=== PATIENT | male | born 1995 | race African-American/Black ===

== ENCOUNTER 2018-05-22 15:16 | Emergency (ER) | payer OTHER ==
--- NOTE | 2018-05-22 16:09 | ED Physician Documentation ---
History of Present Illness - Stated complaint Stated Complaint: DARBY - Chief complaint Chief Complaint: Neuro - Additonal information Additional information: hx from pt healthy 23 y/o male hx cluster DARBY typically one sided severe brief and sometimes with vision loss he was going to get a MRI as part of work up when he used to live in [place] - but he missed his MRI appt due to a relationship break up today had a typical DARBY with right vision blurriness no trauma no fever or neck stiffness no CO exposure just headahce typical of his HAs now it is gone Review of Systems Constitutional: denies: Fever Eyes: reports: Decreased vision Cardiac: denies: Chest pain / pressure Respiratory: denies: Dyspnea GI: reports: Nausea, Vomiting Neurologic: reports: Headache. denies: Focal weakness, Numbness, Head injury Endocrine: denies: Easy bruising / bleeding Immunocompromised: denies: Immunocompromised PD PAST MEDICAL HISTORY - Past Medical History Past Medical History: Yes Neuro: Headaches - Past Surgical History Past Surgical History: Yes HEENT: Other - Present Medications Home Medications: Ambulatory Orders Medication Instructions Recorded Confirmed Ondansetron Odt [Zofran] 4 mg TL Q6H PRN #10 tablet 05/22/18 - Allergies Allergies/Adverse Reactions: Allergies Allergy/AdvReac Type Severity Reaction Status Date / Time No Known Drug Allergies Allergy Verified 05/22/18 15:34 - Social History Does the pt smoke?: No Smoking Status: Never smoker Does the pt drink ETOH?: No Does the pt have substance abuse?: No - Immunizations Immunizations are current?: Yes - POLST Patient has POLST: No PD ED PE NORMAL - Vitals Vital signs reviewed: Yes - General General: Alert and oriented X 3 - HEENT HEENT: PERRL, Other (globes soft, no TA TTP, no hazienss PERRL) - Neck Neck: Supple, no meningeal sign - Cardiac Cardiac: RRR - Respiratory Respiratory: No respiratory distress - Neuro Neuro: Alert and oriented X 3, No motor deficit, Normal speech Eye Opening: Spontaneous Motor: Obeys Commands Verbal: Oriented GCS Score: 15 Results - Vitals Vitals: Vital Signs - 24 hr 05/22/18 15:29 Temperature 36.1 C L Heart Rate 47 L Respiratory 16 Rate Blood Pressure 131/59 H O2 Saturation 100 Oxygen O2 Source Room air Departure - Departure Disposition: 01 Home, Self Care Clinical Impression: Headache Qualifiers: Headache type: cluster Headache chronicity pattern: episodic headache Intractability: not intractable Qualified Code(s): G44.019 - Episodic cluster headache, not intractable Condition: Good Instructions: ED Headache Cluster Follow-Up: [facility] [Provider Group] Prescriptions: Ondansetron Odt [Zofran] 4 mg TL Q6H PRN #10 tablet PRN Reason: Nausea / Vomiting Comments: Since the headache is better now it is OK for you to go home I have prescribed zofran for you to take in the future - it helps with vomiting so you can keep motrin or tylenol down And I have referred you to [facility] for ongoing care - you may want to discuss trying to get the MRI after all
[2018-05-22 16:14] VITALS: BP 130/60
== END 2018-05-22 16:13 | disposition home or self-care (01) ==
LOC: ED 15:16
DX: G44.019 Episodic cluster headache, not intractable (principal); R11.2 Nausea with vomiting, unspecified
CPT/HCPCS: 99283